=== PATIENT | female | born 1985 | race Caucasian/White ===

== ENCOUNTER 2022-06-02 14:30 | Outpatient (CLI) | payer BC, SELFPAY ==
[2022-06-02 16:24] LABS: Cholesterol* 200 mg/dL (90-199); Triglycerides* 73 mg/dL (40-149)
[2022-06-02 16:25] LABS: HDL Cholesterol* 96 mg/dL (>=50); LDL Cholesterol Calculated 89 mg/dL (<100)
== END 2022-06-02 14:31 | disposition home or self-care (01) ==
LOC: NFLDREF 14:32
PROVIDERS: PCP Obstetrics & Gynecology; Visit Provider Obstetrics & Gynecology
DX: Z13.6 Encounter for screening for cardiovascular disorders (principal)
CPT/HCPCS: 80061

== ENCOUNTER 2023-07-04 07:30 | Outpatient (RCR) | payer OTHER, BC, SELFPAY | END 2023-07-04 08:14 | disposition home or self-care (01) | PROVIDERS: PCP Physician Assistant Medical; Visit Provider Orthopaedic Surgery Sports Medicine | DX: S62.607A Fracture of unspecified phalanx of left little finger, initial encounter for closed fracture (principal); M25.60 Stiffness of unspecified joint, not elsewhere classified; R29.898 Other symptoms and signs involving the musculoskeletal system; Z51.89 Encounter for other specified aftercare | CPT/HCPCS: 97110; 97140; 97165; 97530; L3906; X5282 ==

== ENCOUNTER 2023-10-10 08:48 | Outpatient (CLI) | payer BC, SELFPAY | END 2023-10-10 08:49 | disposition home or self-care (01) | PROVIDERS: PCP Physician Assistant Medical; Visit Provider Physician Assistant Medical | DX: Z13.220 Encounter for screening for lipoid disorders (principal); Z13.228 Encounter for screening for other metabolic disorders | CPT/HCPCS: 80048; 80061 ==

== ENCOUNTER 2024-10-09 12:12 | Outpatient (CLI) | payer BC, SELFPAY | END 2024-10-09 12:13 | disposition home or self-care (01) | LOC: NFLDREF 10-14 16:07 | PROVIDERS: PCP Physician Assistant Medical; Referring Provider Physician Assistant Medical; Visit Provider Physician Assistant Medical | DX: Z00.00 Encounter for general adult medical examination without abnormal findings (principal); Z13.0 Encounter for screening for diseases of the blood and blood-forming organs and certain disorders involving the immune mechanism; Z13.1 Encounter for screening for diabetes mellitus; Z13.6 Encounter for screening for cardiovascular disorders | CPT/HCPCS: 80048; 80061 ==

== ENCOUNTER 2024-12-19 07:16 | Outpatient (CLI) | payer BC, SELFPAY ==
[2024-12-19 07:49] LABS: Trichomonas No Trichomonas Seen (None Seen)
== END 2024-12-19 07:17 | disposition home or self-care (01) ==
PROVIDERS: PCP Physician Assistant Medical; Visit Provider Family Medicine
DX: N89.8 Other specified noninflammatory disorders of vagina (principal)
CPT/HCPCS: 81513; 87086; 87210; 87481; 87661